=== PATIENT | male | born 1970 | race African-American/Black ===

== ENCOUNTER 2017-04-21 03:41 | Emergency (ER) | payer SELFPAY ==
[2017-04-21] MEDS ORDERED: KETOROLAC TROMETHAMINE 60 MG/2 ML VIAL ONE (03:50)
[2017-04-21] MEDS: KETOROLAC TROMETHAMINE 60 MG/2 ML VIAL IM ONE (03:55)
[2017-04-21 04:32] LABS: BASOPHILS % 0.3 (0.0-1.5); EOSINOPHILS % 1.9 % (0.0-6.8); MEAN CORPUSCULAR HEMOGLOBIN 31.3 pg (28.0-34.0); MEAN CORPUSCULAR VOLUME 90.3 fl (80.0-100.0); MONOCYTES % 4.5 % (0.0-11.0); NEUTROPHILS # 4.4 # k/uL (1.4-7.7)
[2017-04-21] MEDS: NALBUPHINE HCL 10 MG/1 ML IM ONE (04:38)
[2017-04-21 04:43] LABS: eGFR (African) > 60; eGFR (Non-African) > 60
--- NOTE | 2017-04-21 04:56 | Diagnostic Imaging Report ---
JUSTINE EWING (MELY) - ER [facility] [id number] [facility].[address] [address] Report Submission Date: Apr 21, 2017 4:09:54 AM CDT Patient Study Name: YENNY HERNANDEZ Date: Apr 21, 2017 3:52:05 AM CDT Modality Type: CR Gender: M Description: PELVIS : 74 Institution: [facility] Physician: JUSTINE EWING) - ER HISTORY: 46-year-old male with right hip pain for 2 days. COMPARISON: None available TECHNIQUE: AP and frog-leg lateral views of the right hip were performed. FINDINGS: No acute fracture or significant joint space narrowing about the right hip. There is heterogeneous density of the femoral head without collapse of the articular surface. IMPRESSION: 1. No acute fracture of the right hip. 2. Suggestion of early to mid grade femoral head AVN without collapse of the articular surface. Recommend follow-up outpatient MRI of the right hip for better characterization. Electronically signed on Apr 21, 2017 4:09:54 AM CDT by: Eleazar KNIGHT
--- NOTE | 2017-04-21 05:02 | ED Physician Documentation ---
Hip Injury/Pain - HISTORIAN Historian: patient - HPI Stated Complaint: right hip to ankle pain Chief Complaint: Hip Pain Onset: days ago (April 18) Where: home Severity: severe Duration: persistent since Context: no injury Symptoms Prior to Fall: none Other Injuries: none Further Comments: yes (46 year old male patient presents with 3 day history of right hip pain, progressively worse, no OTC medications prior to arrival. Denies fall, injury or heavy lifting. Report pain worse with "certain movements ".) - ROS CONST: no problems GI/: denies: none, abdominal pain, diarrhea, black stools, problems urinating , other EYES/ENT: none MS/SKIN/LYMPH: denies: neck pain, ankle swelling, leg swelling, rash, swollen glands, other NEURO/PSYCH: denies: confusion, anxiety, depression, other - PAST HX Cardiac Disease: none PE Risk Factors: none Surgeries/Procedures: none Allergies/Adverse Reactions: Allergies Allergy/AdvReac Type Severity Reaction Status Date / Time No Known Allergies Allergy Verified 04/21/17 03:54 Home Medications: Ambulatory Orders Medication Instructions Recorded NK [NK] 04/21/17 - SOCIAL HX Smoking History: cigarettes Drug Use: cocaine (History of addiction "3-4 years ago") - FAMILY HX Family History: No - VITAL SIGNS Vital Signs: Vital Signs Temp Pulse Resp BP Pulse Ox 98.6 F 65 16 142/118 98 04/21/17 03:43 04/21/17 03:43 04/21/17 03:43 04/21/17 03:43 04/21/17 03:43 - REVIEWED ASSESSMENTS Nursing Assessment Reviewed: Yes Vitals Reviewed: Yes Progress - Progress Progress: Xray suggestive of AVN, will progress with lab and UA. Reviewed lab and xray findings with patient and . Patient denies history of sickle cell, lupus, trauma, denies daily ETOH use, bleeding disorders, or HIV. Patient did report 7-8 month history of cocaine abuse 3-4 years ago. Referral to orthopedics, will treat pain with NSAID due to history of cocaine abuse. Will prescribe Ultram #15 as well. ED Results Lab/Radiology - Lab Results Lab Results: Lab Results 04/21/17 04/21/17 04:20 04:20 WBC 8.30 K/ul K/ul (4.00-12.00) RBC 4.75 M/ul M/ul (3.90-5.20) Hgb 14.9 g/dL g/dL (12.0-18.0) Hct 42.9 % % (37.0-53.0) MCV 90.3 fl fl (80.0-100.0) MCH 31.3 pg pg (28.0-34.0) MCHC 34.6 g/dL g/dL (30.0-36.0) RDW 12.6 % % (11.3-14.3) Plt Count 220 K/mm3 K/mm3 (130-400) Neut % (Auto) 53.3 % % (39.0-79.0) Lymph % (Auto) 38.2 % % (16.0-50.0) Surry % (Auto) 4.5 % % (0.0-11.0) Eos % (Auto) 1.9 % % (0.0-6.8) Baso % (Auto) 0.3 (0.0-1.5) Neut # (Auto) 4.4 # k/uL # k/uL (1.4-7.7) Lymph # (Auto) 3.2 # k/uL # k/uL (0.6-4.0) Surry # (Auto) 0.4 # k/uL # k/uL (0.0-0.9) Eos # (Auto) 0.2 # k/uL # k/uL (0.0-0.6) Baso # (Auto) 0.0 # k/uL # k/uL (0.0-0.5) Reactive Lymphs % 1.8 % % (0.0-5.0) Reactive Lymphs # 0.2 # k/uL # k/uL (0.0-0.8) Sodium 139 mmol/L mmol/L (136-145) Potassium 4.2 mmol/L mmol/L (3.5-5.0) Chloride 104 mmol/L mmol/L (98-110) Carbon Dioxide 23 mmol/L mmol/L (20-32) BUN 12 mg/dL mg/dL (10-26) Creatinine 1.0 mg/dL mg/dL (0.4-1.5) Estimated Creat Clear 108 Est GFR ( Amer) > 60 (60 - ) Est GFR (Non-Af Amer) > 60 (60 - ) Glucose 93 mg/dL mg/dL (70-99) Calcium 9.8 mg/dL mg/dL (8.5-10.5) - Orders Orders: ED Orders Category Date Time Status RT HIP 2VIEW COMPLETE [RAD] Stat Exams 04/21/17 Ordered BMP Routine Lab 04/21/17 04:20 Completed CBC/PLATELET/DIFF Routine Lab 04/21/17 04:20 Completed URINALYSIS Routine Lab 04/21/17 Ordered Ketorolac Tromethamine [Toradol] Med 04/21/17 03:50 Discontinued 60 mg .ROUTE .STK-MED ONE Nalbuphine HCl [Nubain] Med 04/21/17 04:36 Discontinued 10 mg IM NOW ONE Hip Injury/Pain Physical Exam - EXAM General Appearance: moderate distress Extremities: nml ROM, no obvious injury, no deformity of knee, nml tendon exam, hip pain on leg movement, hip tenderness (right hip with movement) EENT: eye inspection normal, CASI Respiratory: chest non-tender, breath sounds nml CVS: reg rate & rhythm, heart sounds normal, equal pulses, no murmur, no gallop , no JVD, no friction rub, 24 Abdomen: non-tender Skin: normal color, warm/dry, NR, INT, PAL Neuro/Psych: oriented x3, neuro grossly intact, mood/affect nml Discharge Clincal Impression: Acute right hip pain, AVN (avascular necrosis of bone) Referrals: Primary Doctor,No [Primary Care Provider] - 2 Days Additional Instructions: Rest ice Decrease weight bearing - try cane or crutches if pain becomes worse. Follow up with orthopedic - see referral sheet, call and make an appointment. You need an MRI to confirm diagnosis and treatment plan. supervisor fiber locking your prescription and start it today. Home Medications: Ambulatory Orders NK [NK] 04/21/17 Condition: Stable Disposition: 01 HOME, SELF-CARE Decision to Admit: NO Decision Time: 05:00
[2017-04-21 05:14] VITALS: BP 136/72
[2017-04-21 06:53] LABS: APPEARANCE,URINE CLEAR (CLEAR); COLOR,URINE YELLOW (YELLOW); OCCULT BLOOD,URINE NEGATIVE (NEGATIVE); PH URINE 8.5 (5.0 - 8.0); UROBILINOGEN URINE 0.2 Eu (0.2-1.0)
== END 2017-04-21 05:10 | disposition home or self-care (01) ==
LOC: ED 03:41
DX: M25.551 Pain in right hip (principal); M87.9 Osteonecrosis, unspecified
CPT/HCPCS: 73502; 80048; 81002; 85025; J1885; J2300; 96372; 99283

== ENCOUNTER 2018-07-05 13:13 | Emergency (ER) | payer SELFPAY ==
--- NOTE | 2018-07-05 13:41 | ED Physician Documentation ---
General Adult - HISTORIAN Historian: patient - HPI Stated Complaint: Chest heaviness/fatique Chief Complaint: Chest Pain Onset: days ago (1) Timing: still present Severity: moderate Further Comments: yes (Pt is a 47 yo aa male with hx AVN in both hips, who c/o chest pain x 1 day. Pt felt pressure in his L upper chest and into his L arm. No n/v. No significant sob. Says he gets sweaty from time to time. Pt states that he has been under a lot of stress recently. 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.) Other History: none Allergies/Adverse Reactions: Allergies Allergy/AdvReac Type Severity Reaction Status Date / Time No Known Allergies Allergy Verified 07/05/18 13:29 Home Medications: Ambulatory Orders Medication Instructions Recorded NK 07/05/18 - SOCIAL HX Smoking History: cigarettes - FAMILY HX Family History: No (pt was adopted) - VITAL SIGNS Vital Signs: Vital Signs Temp Pulse Resp BP Pulse Ox 64 16 109/86 99 07/05/18 13:13 07/05/18 13:13 07/05/18 13:13 07/05/18 13:13 - REVIEWED ASSESSMENTS Nursing Assessment Reviewed: Yes Vitals Reviewed: Yes Progress - Progress Progress: NS 500 cc IVF Ativan 1 mg IV much improved Pt will f/u with pcp within 1 week. General Adult Physical Exam - PHYSICAL EXAM GENERAL APPEARANCE: mild distress (anxious) EENT: dry mucous membranes NECK: normal inspection, supple RESPIRATORY: no resp distress, chest non-tender, breath sounds normal CVS: reg rate & rhythm, heart sounds normal, equal pulses ABDOMEN: soft, no organomegaly, normal bowel sounds BACK: normal inspection, no CVA tenderness SKIN: warm/dry, normal color EXTREMITIES: non-tender, normal range of motion, no evidence of injury, no edema, other (no pain/cords in calves) NEURO: oriented X3, motor nml, sensation nml, other (mild anxiety) Discharge Clincal Impression: transient chest pain, Anxiety Referrals: Primary Doctor,No [Primary Care Provider] - Condition: Stable Disposition: 01 HOME, SELF-CARE Decision to Admit: NO Decision Time: 15:34
[2018-07-05 14:02] LABS: eGFR (Non-African) > 60
[2018-07-05] MEDS: LORazepam 2 MG/ML VIAL IVP ONE (14:03)
[2018-07-05] MEDS: 0.9 % SODIUM CHLORIDE 500 ML IV ONE (14:03)
[2018-07-05] MEDS: ASPIRIN 81 MG CHEW TAB PO ONE (14:03)
[2018-07-05] MEDS: 0.9 % SODIUM CHLORIDE 1,000 ML IV ONE (15:09)
[2018-07-05 15:21] LABS: BASO % 0.4 % (0.0-1.5); EOS % 1.6 % (0.0-6.8); LYMPH ABS # 2.18 thou/uL (0.60-4.00); MCH. 31.6 pg (28.0-34.0); MCV 88.1 fL (80.0-100.0); MONOCYTE % 5.3 % (0.0-11.0); MONOCYTE ABS # 0.38 thou/uL (0.00-0.90); PLATELET COUNT 269 thou/uL (130-400)
[2018-07-05 15:53] VITALS: BP 116/87
--- NOTE | 2018-07-05 18:49 | Diagnostic Imaging Report ---
LUIS ALBERTO KIRBY [facility] [address] [facility] [address] [address] Report Submission Date: Jul 05, 2018 2:08:55 PM CDT Patient Study Name: YENNY HERNANDEZ Date: Jul 05, 2018 1:44:47 PM CDT Modality Type: DX Gender: M Description: CHEST : 74 Institution: [facility] Physician: LUIS ALBERTO KIRBY PA AND LATERAL CHEST HISTORY: Chest pain COMPARISON: None PA and Lateral Chest dated July 05, 2018 demonstrates a normal cardiomediastinal silhouette. Pulmonary vascularity is normal. Lungs are clear. IMPRESSION: NO ACTIVE DISEASE. Electronically signed on Jul 05, 2018 2:08:55 PM CDT by: Ethel KNIGHT
== END 2018-07-05 15:25 | disposition home or self-care (01) ==
LOC: ED 13:13
DX: R07.89 Other chest pain (principal); F41.9 Anxiety disorder, unspecified
CPT/HCPCS: 71046; 80053; 82550; 82553; 83880; 84484; 85025; 85379; 93005; J2060; J7060; 96365; 96375; 99285; S1016

== ENCOUNTER 2018-10-28 16:13 | Outpatient (CLI) | payer OTHER | END 2018-10-28 16:25 | LOC: LAB 16:13 | PROVIDERS: ATTEND Family Medicine | DX: M87.051 Idiopathic aseptic necrosis of right femur (principal); M79.10 Myalgia, unspecified site | CPT/HCPCS: 36415; 85651; 86038 ==